=== PATIENT | male | born 1990 | race Caucasian/White ===

== ENCOUNTER 2018-11-23 10:03 | Emergency (ER) | payer OTHER ==
[2018-11-23 10:21] VITALS: TEMP 97.9
--- NOTE | 2018-11-23 10:52 | ED ---
Fall HPI - General Chief Complaint: Fall Stated Complaint: Fall-Rib Pain Time Seen by Provider: 11/23/18 10:24 Source: patient Mode of arrival: ambulatory - History of Present Illness Initial Comments: Patient is a 28-year-old male presenting to the emergency Department with complaints of left-sided rib pain 3 days. Patient states he was in the shower and slipped and fell onto the ledge of the shower tub landing onto his left side. Patient states she has pain with deep breathing and with twisting and turning of his trunk. Patient denies any other injuries from the fall. Patient has no other complaints at this time. - Related Data Allergies Allergy/AdvReac Type Severity Reaction Status Date / Time No Known Allergies Allergy Verified 11/23/18 10:17 Review of Systems ROS Statement: Those systems with pertinent positive or pertinent negative responses have been documented in the HPI. ROS Other: All systems not noted in ROS Statement are negative. Past Medical History Past Medical History: No Reported History History of Any Multi-Drug Resistant Organisms: None Reported Past Surgical History: Orthopedic Surgery Additional Past Surgical History / Comment(s): L foot Past Psychological History: No Psychological Hx Reported Smoking Status: Never smoker Past Alcohol Use History: None Reported Past Drug Use History: None Reported General Exam - General Exam Comments Initial Comments: GENERAL: Well-appearing, well-nourished and in no acute distress. HEAD: Atraumatic, normocephalic. EYES: Pupils equal round and reactive to light, extraocular movements intact, sclera anicteric, conjunctiva are normal. ENT: TMs normal, nares patent, oropharynx clear without exudates. Moist mucous membranes. NECK: Normal range of motion, supple without lymphadenopathy or JVD. LUNGS: Breath sounds clear to auscultation bilaterally and equal. No wheezes rales or rhonchi. Pain with palpation of the left anterior and side over the ribs 8-10. No bruising of the area. HEART: Regular rate and rhythm without murmurs, rubs or gallops. ABDOMEN: Soft, nontender, normoactive bowel sounds. No guarding, no rebound. No masses appreciated. : Deferred EXTREMITIES: Normal range of motion, no pitting or edema. No clubbing or cyanosis. NEUROLOGICAL: Cranial nerves II through XII grossly intact. Normal speech, normal gait. PSYCH: Normal mood, normal affect. SKIN: Warm, Dry, normal turgor, no rashes or lesions noted. Limitations: no limitations Course Vital Signs 11/23/18 11/23/18 10:17 11:05 Temperature 97.9 F Pulse Rate 17 L 71 Respiratory 18 Rate Blood Pressure 121/76 O2 Sat by Pulse 98 Oximetry Medical Decision Making - Medical Decision Making Patient is a 28-year-old male presenting with left-sided rib pain 3 days. Patient slipped and fell on the side of the tub. Patient has pain with palpation over the anterior and lateral left rib area. There is no bruising. X-rays reveal no acute fractures/dislocations. Patient was counseled on rib contusions and will use ibuprofen, heat, ice for pain relief. Patient is stable for discharge at this time. Return parameters were discussed with the patient he verbalizes understanding. Case discussed with Dr. Randle. Disposition Clinical Impression: Fall, Contusion of rib on left side Disposition: HOME SELF-CARE Condition: Stable Instructions (If sedation given, give patient instructions): Rib Contusion (ED) Additional Instructions: Please return to the Emergency Department if symptoms worsen or any other concerns. Use heat, ice, ibuprofen for pain. Is patient prescribed a controlled substance at d/c from ED?: No Referrals: Audi Nicole MD [Primary Care Provider] - 1-2 days
[2018-11-23 11:08] VITALS: PULSE 71
--- NOTE | 2018-11-23 11:27 | XR ---
EXAMINATION TYPE: XR ribs LT w pa chest xray DATE OF EXAM: 11/23/2018 COMPARISON: NONE HISTORY: Pain TECHNIQUE: Frontal view the chest and 5 views of the left ribs are obtained FINDINGS: Lungs are clear. No pleural effusion, consolidation or pneumothorax. Rib cage is intact. IMPRESSION: No acute displaced rib fracture
[2018-11-23 11:53] VITALS: BP 125/89; RESP 14
== END 2018-11-23 11:46 | disposition home or self-care (01) ==
LOC: EC 10:03
DX: S20.212A Contusion of left front wall of thorax, initial encounter (principal); Z98.890 Other specified postprocedural states; W18.2XXA Fall in (into) shower or empty bathtub, initial encounter; Y93.89 Activity, other specified; Y92.002 Bathroom of unspecified non-institutional (private) residence as the place of occurrence of the external cause
CPT/HCPCS: 99283